=== PATIENT | female | born 1980 | race Caucasian/White ===

== ENCOUNTER 2018-10-20 11:36 | Emergency (ER) | payer OTHER ==
[2018-10-20 12:58] LABS: Absolute Lymphocytes (CBC) 1.7 K/uL (0.7-4.9); Absolute Monocytes 0.4 K/uL (0.1-1.3); Absolute Neutrophil 3.3 K/uL (1.8-8.0); Basophils % 1.5 % (0-1.3); Hematocrit 35.6 % (36.0-45.0); Lymphocytes % 30.1 % (15.3-44.8); MPV 8.6 fL (7.6-11.3); Monocytes % 6.9 % (3.3-12.3); RBC Red Blood Cell Count 4.71 M/uL (3.86-4.86)
[2018-10-20 13:09] LABS: BUN Blood Urea Nitrogen 9 mg/dL (7-18); Bicarbonate 28 mmol/L (21-32); Glucose Level 99 mg/dL (74-106); Potassium 3.7 mmol/L (3.5-5.1); Sodium Level 142 mmol/L (136-145)
--- NOTE | 2018-10-20 13:48 | RAD REPORT ---
EXAM DESCRIPTION: MRI - Brain Wo Cont - 10/20/2018 1:37 pm CLINICAL HISTORY: DIZZINESS Headache, syncope, drowsiness COMPARISON: No comparisons TECHNIQUE: Multi-sequence, multiplanar MR imaging of the brain was performed without contrast. FINDINGS: No intracranial hemorrhage, hydrocephalus or extra-axial fluid collections. No edema or sh ift of midline structures. No findings to suspect brain mass. DWI is negative for acute CVA. Midline structures are normally formed. Mastoid air cells and paranasal sinuses are clear. IMPRESSION: No acute or concerning intracranial abnormalities.
--- NOTE | 2018-10-20 13:58 | EDPHYS ---
Physician Documentation [facility] Name: Miranda Howell Age: 38 yrs Sex: Female : 1980 Arrival Date: 10/20/2018 Time: 11:41 Bed 15 Private MD: ED Physician Héctor Stratton HPI: 10/20 13:54 This 38 yrs old Female presents to ER via Wheelchair with complaints of gs Dizziness, Nausea. 13:54 The patient presents with dizziness, sense of spinning, vertigo. Onset: The gs symptoms/episode began/occurred acutely, this morning, today. Context: occurred at home. Modifying factors: The symptoms are alleviated by nothing, the symptoms are aggravated by nothing. Associated signs and symptoms: Pertinent positives: nausea. Severity of symptoms: At their worst the symptoms were severe in the emergency department the symptoms have improved mildly. The patient has not experienced similar symptoms in the past. The patient has not recently seen a physician. 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 - Social history:: Smoking status: Patient/guardian denies using tobacco. - Ebola Screening: : No symptoms or risks identified at this time. ROS: 13:54 All other systems are negative. gs Exam: 13:54 Head/Face: Normocephalic, atraumatic. Eyes: Pupils equal round and reactive to light, gs extra-ocular motions intact. Lids and lashes normal. Conjunctiva and sclera are non-icteric and not injected. Cornea within normal limits. Periorbital areas with no swelling, redness, or edema. ENT: Nares patent. No nasal discharge, no septal abnormalities noted. Tympanic membranes are normal and external auditory canals are clear. Oropharynx with no redness, swelling, or masses, exudates, or evidence of obstruction, uvula midline. Mucous membranes moist. Neck: Trachea midline, no thyromegaly or masses palpated, and no cervical lymphadenopathy. Supple, full range of motion without nuchal rigidity, or vertebral point tenderness. No Meningismus. Chest/axilla: Normal chest wall appearance and motion. Nontender with no deformity. No lesions are appreciated. Cardiovascular: Regular rate and rhythm with a normal S1 and S2. No gallops, murmurs, or rubs. Normal PMI, no JVD. No pulse deficits. Respiratory: Lungs have equal breath sounds bilaterally, clear to auscultation and percussion. No rales, rhonchi or wheezes noted. No increased work of breathing, no retractions or nasal flaring. Abdomen/GI: Soft, non-tender, with normal bowel sounds. No distension or tympany. No guarding or rebound. No evidence of tenderness throughout. Back: No spinal tenderness. No costovertebral tenderness. Full range of motion. Skin: Warm, dry with normal turgor. Normal color with no rashes, no lesions, and no evidence of cellulitis. MS/ Extremity: Pulses equal, no cyanosis. Neurovascular intact. Full, normal range of motion. Neuro: Awake and alert, GCS 15, oriented to person, place, time, and situation. Cranial nerves II-XII grossly intact. Motor strength 5/5 in all extremities. Sensory grossly intact. Cerebellar exam normal. Normal gait. 13:54 Constitutional: The patient appears alert, awake. 13:54 ECG was reviewed by the Attending Physician. Vital Signs: 11:44 BP 149 / 91; Pulse 92; Resp 18; Temp 97.8(O); Pulse Ox 100% on R/A; Pain 4/10; hb 12:48 BP 144 / 97; Pulse 88; Resp 16; Temp 98.0; Pulse Ox 99% on R/A; Pain 0/10; ls4 MDM: 12:17 Patient medically screened. 13:54 Differential diagnosis: CVA, idiopathic dizziness, vertigo. Data reviewed: vital signs, nurses notes. Response to treatment: the patient's symptoms have markedly improved after treatment, and as a result, I will discharge patient. 13:58 ED course: concern for dizziness imbalance tigling fingertips will get mri pt improved gs after meds, . 02 12:19 Order name: Basic Metabolic Panel; Complete Time: 13:54 02 12:19 Order name: CBC with Diff; Complete Time: 13:54 02 12:19 Order name: MRI - Brain Wo Cont; Complete Time: 13:54 10/20 14:05 Order name: Urine Dipstick--Ancillary (enter results); Complete Time: 14:15 10/20 14:05 Order name: Urine --Ancillary (enter results); Complete Time: 14:15 10/20 12:19 Order name: EKG; Complete Time: 12:19 10/20 12:19 Order name: Cardiac monitoring; Complete Time: 12:23 10/20 12:19 Order name: EKG - Nurse/Tech; Complete Time: 12:45 10/20 12:19 Order name: IV Saline Lock; Complete Time: 12:24 10/20 12:19 Order name: Labs collected and sent; Complete Time: 14:16 10/20 12:19 Order name: O2 Per Protocol; Complete Time: 12:24 10/20 12:19 Order name: O2 Sat Monitoring; Complete Time: 12:24 EC:54 Rate is 75 beats/min. Rhythm is regular. ME interval is normal. QRS interval is normal. gs T waves are Normal. Clinical impression: Normal ECG. Interpreted by me. Administered Medications: 13:26 Drug: Benadryl 25 mg Route: IVP; Site: left antecubital; ls4 14:01 Follow up: Response: No adverse reaction; Marked relief of symptoms ls4 Disposition: 10/20/18 13:57 Discharged to Home. Impression: Benign paroxysmal vertigo. - Condition is Stable. - Discharge Instructions: Benign Positional Vertigo. - Prescriptions for Benadryl 25 mg Oral Capsule - take 1 capsule by ORAL route every 8 hours As needed; 30 tablet. Valium 5 mg Oral Tablet - take 1 tablet by ORAL route every 12 hours As needed; 10 tablet. - Medication Reconciliation Form, Thank You Letter, Antibiotic Education, Prescription Opioid Use form. - Follow up: Mendel Fine MD; When: 2 - 3 days; Reason: Re-evaluation by your physician. Signatures: Dispatcher [employer] EDKylie De Dios RN RN Héctor Guevara MD MD gs Stewart, Lisa, RN RN ls4 Corrections: (The following items were deleted from the chart) 14:30 13:57 10/20/2018 13:57 Discharged to Home. Impression: Benign paroxysmal vertigo. ls4 Condition is Stable. Forms are Medication Reconciliation Form, Thank You Letter, Antibiotic Education, Prescription Opioid Use. Follow up: Mendel Fine; When: 2 - 3 days; Reason: Re-evaluation by your physician. gs
--- NOTE | 2018-10-20 13:58 | ER ---
Nurse's Notes [facility] Name: Miranda Howell Age: 38 yrs Sex: Female : 1980 Arrival Date: 10/20/2018 Time: 11:41 Bed 15 Private MD: Diagnosis: Benign paroxysmal vertigo Presentation: 10/20 11:43 Presenting complaint: Severe dizziness and nausea since this morning. Transition of hb care: patient was not received from another setting of care. Onset of symptoms was October 20, 2018. Risk Assessment: Do you want to hurt yourself or someone else? Patient reports no desire to harm self or others. Care prior to arrival: None. 11:43 Method Of Arrival: Wheelchair hb 11:43 Acuity: KENNY 3 hb 12:46 Initial Sepsis Screen: Does the patient meet any 2 criteria? No. Patient's initial ls4 sepsis screen is negative. Does the patient have a suspected source of infection? No. Patient's initial sepsis screen is negative. Triage Assessment: 11:58 General: Appears obese, unkempt, Behavior is calm, cooperative. Pain: Denies pain. ls4 Neuro: Level of Consciousness is awake, alert, obeys commands, Oriented to person, place, time, situation, Foaming Machine Operator are equal bilaterally Moves all extremities. Gait is unsteady, Speech is slurred. Neuro: Reports. Cardiovascular: No deficits noted. Respiratory: No deficits noted. GI: Reports nausea. 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 - Social history:: Smoking status: Patient/guardian denies using tobacco. - Ebola Screening: : No symptoms or risks identified at this time. Screenin:59 Abuse screen: Denies threats or abuse. Denies injuries from another. Nutritional ls4 screening: No deficits noted. Tuberculosis screening: No symptoms or risk factors identified. Fall Risk None identified. Assessment: 11:45 GI: Reports nausea. ls4 11:45 General: Appears in no apparent distress. Neuro: Reports dizziness, since this morning. ls4 GI: Abdomen is obese, Bowel sounds present X 4 quads. Abd is soft and non tender. Vital Signs: 11:44 BP 149 / 91; Pulse 92; Resp 18; Temp 97.8(O); Pulse Ox 100% on R/A; Pain 4/10; hb 12:48 BP 144 / 97; Pulse 88; Resp 16; Temp 98.0; Pulse Ox 99% on R/A; Pain 0/10; ls4 ED Course: 11:41 Patient arrived in ED. mr 11:44 Triage completed. hb 11:44 Arm band placed on. hb 11:49 Ericka Olivarez, RN is Primary Nurse. ls4 11:55 Héctor Stratton MD is Attending Physician. gs 11:59 Patient has correct armband on for positive identification. Placed in gown. Bed in low ls4 position. Call light in reach. Side rails up X 1. teletypesetter monitor on. Pulse ox on. NIBP on. Warm blanket given. 12:37 EKG done, by cath lab radiology technician. reviewed by Héctor Stratton MD. at1 12:45 No provider procedures requiring assistance completed. Initial lab(s) drawn, by pr, ls4 sent to lab. Inserted saline lock: 20 gauge in left antecubital area, using aseptic technique. 13:18 Patient moved to MRI via wheelchair. em2 13:33 MRI - Brain Wo Cont In Process Unspecified. EDMS 13:39 PT AT MRI. ls4 13:45 MRI completed. Patient tolerated well. Patient moved back from [facility]. em2 13:56 Mendel Fine MD is Referral Physician. gs 14:28 IV discontinued, intact, bleeding controlled, No redness/swelling at site. Pressure ls4 dressing applied. Administered Medications: 13:26 Drug: Benadryl 25 mg Route: IVP; Site: left antecubital; ls4 14:01 Follow up: Response: No adverse reaction; Marked relief of symptoms ls4 Outcome: 13:57 Discharge ordered by . gs 14:29 Discharged to home via ambulance, with family. ls4 14:29 Condition: stable 14:29 Discharge instructions given to patient, family, Instructed on discharge instructions, follow up and referral plans. Demonstrated understanding of instructions, follow-up care, medications. 14:30 Patient left the ED. ls4 Signatures: Dispatcher [employer] VIRALAZ Ashwini Elkins mr HernándezTelly em2 Rachel Hdez, crop specialist EKG Tat1 Kylie Hdz, RN RN hb Héctor Stratton MD MD gs Ericka Olivarez RN RN ls4
[2018-10-20 14:11] LABS: Urine Blood NEGATIVE (NEG); Urine Glucose NEGATIVE (NEG); Urine Protein NEGATIVE (NEG); Urine Specific Gravity 1.025 (1.005-1.030)
--- NOTE | 2018-10-20 16:57 | EKG ---
Test Date: 2018-10-20 Test Time: 12:34:21 Flux Mixer: ARCENIO MEASUREMENT RESULTS: Intervals: Rate: 75 AK: 160 QRSD: 84 QT: 428 QTc: 477 [place]: P: 68 AK: 160 QRS: 78 T: 39 INTERPRETIVE STATEMENTS: Normal sinus rhythm Normal ECG No previous ECG available for comparison Electronically Signed On 10-20-18 16:56:28 DATABASE ADMINISTRATION PROJECT MANAGER by Graham Young
== END 2018-10-20 14:30 | disposition home or self-care (01) ==
LOC: ER 11:36
DX: H81.10 Benign paroxysmal vertigo, unspecified ear (principal); E03.9 Hypothyroidism, unspecified
CPT/HCPCS: 36415; 70551; 80048; 81003; 81025; 85025; 93005; 96374; 99285

== ENCOUNTER 2020-02-28 09:40 | Emergency (ER) | payer BC, OTHER ==
--- OUTSIDE RECORDS SUMMARY | 2020-02-28 11:10 | XMS REPORT | Continuity of Care Document ---
:1980 Author Organization [facility] t Address [address] [place] [address] Care Team Providers Name Role Phone Unavailable Unavailable Unavailable Problems Condition Condition Condition Status Onset Resolution Last Treating Co mments Source Name Details Category Date Date Treatment Clinician Date HTN, goal HTN, goal Diagnosis Active [facility] below below [facility] - 140/90 140/90 [facility] Adult BMI Adult BMI Diagnosis Active [facility] 45.0-49.9 45.0-49.9 Luke s - kg/sq m kg/sq m [facility] Secondary Secondary Diagnosis Active [facility] hyperparat hyperparat [facility] - hyroidism hyroidism Jayjay salvatore l [facility] Clinics Iron Iron Diagnosis Active [facility] deficiency deficiency Rosa ke - anemia due anemia due Me moria to chronic to chronic l blood loss blood loss [facility] Clinics Vitamin D Vitamin D Diagnosis Active [facility] deficiency deficiency Rosa ke - disease disease [facility] Hypocalcem Hypocalcem Diagnosis Active [facility] ia ia [facility] - [facility]oria l [facility] Mixed Mixed Diagnosis Active [facility] hyperlipid hyperlipid [facility] - [facility] Hypothyroi Hypothyroi Diagnosis Active [facility] dism, dism, [facility] - unspecifie unspecifie Me moria d type d type l [facility] Clinics Noncomplia Noncomplia Diagnosis Active [facility] nce nce [facility] - w/medicati w/medicati Me moria on on l treatment treatment Outp ati due to due to ent intermit intermit Clinic s use of use of medication medication Well adult Well adult Diagnosis Active [facility] on routine on routine [facility] check check l [facility] Clinics Refused Refused Diagnosis Active [facility] influenza influenza Luke s - vaccine vaccine Memoria l [facility] Allergies, Adverse Reactions, Alerts This patient has no known allergies or adverse reactions. Medications Ordered Filled Start Stop Current Ordering Indication Dosage Frequency Signature Comments Components Source Medication Medication Date Date Medication? Clinician (SIG) Name Name Vitamin D3 Vitamin D3 2018-09 Parker [address] [facility] 0-21 -18 Stewart [facility] - 00:00: 00:00 Memoria 00 :00 [facility] Ferrous Ferrous Yes Parker [address] [facility] Sulfate Sulfate Stewart [facility] Lisinopril Lisinopril Yes Parker [address] [facility] Levothyroxi Levothyroxi Yes Parker [address] [facility] ne Sodium ne Sodium Stewart on an Kaleb es - empty [facility] stomach in the [facility] Calcium Calcium Parker [address] Carbonate Carbonate 09-26 Stewart Kaleb es - 00:00 Memoria :00 [facility] Clinics Procedures This patient has no known procedures. Encounters Start End Encounter Admission Attending Care Care Encounter Source Date/Time Date/Time Type Type Clinicians Facility Department ID 2020-01-03 2020-01-03 Outpatient [facility] [id number] [address] 14:45:00 14:45:00 [facility] 2019-11-04 2019-11-04 Outpatient [facility] [id number] 08:15:00 08:15:00 [facility] 2019-08-30 2019-08-30 Outpatient [facility] [place] [id number] [address] 15:00:00 15:00:[address] [facility] 2019-06-28 2019-06-28 Outpatient [facility] [id number] 15:00:00 15:00:00 [facility] Clinics Results This patient has no known results.
--- OUTSIDE RECORDS SUMMARY | 2020-02-28 11:10 | XMS REPORT ---
:1980 Author Organization [employer] Care Team Providers Name Role Phone Terry Parker Provider Role Unavailable Allergies, Adverse Reactions, Alerts Substance Reaction Event Type N.K.D.A. Info Not Available Non Drug Allergy Problems Problem Type Condition Code Onset Dates Condition Statu s Assessment Well adult on routine health check Z00.00 Active Problem Adult BMI 45.0-49.9 kg/sq m Z68.42 Active Problem Secondary hyperparathyroidism N25.81 Active Problem Iron deficiency anemia due to D50.0 Active chronic blood loss Problem Vitamin D deficiency disease E55.9 Active Problem Hypocalcemia E83.51 Active Problem Mixed hyperlipidemia E78.2 Active Problem Hypothyroidism, unspecified type E03.9 Active Problem HTN, goal below 140/90 I10 Activ e Assessment Iron deficiency anemia due to D50.0 Active chronic blood loss Assessment Hypocalcemia E83.51 Active Assessment Noncompliance w/medication treatment Z91.14 Active due to intermit use of medication Assessment Mixed hyperlipidemia E78.2 Active Assessment Hypothyroidism, unspecified type E03.9 Active Assessment Secondary hyperparathyroidism N25.81 Active Assessment Vitamin D deficiency disease E55.9 Active Assessment Adult BMI 45.0-49.9 kg/sq m Z68.42 Active Assessment Refused influenza vaccine Z28.21 Ac tive Assessment HTN, goal below 140/90 I10 Activ e Medications Medication Code Code Instructions Start End Status Dosage System Date Date Lisinopril [facility] 59837000663 20 MG Orally Active 1 ta blet Once a day Calcium Carbonate [facility] 89251404853 500 MG Orally Acti ve 1 tablet BID Levothyroxine ND 87788060624 125 MCG Orally Active 1 tablet Sodium Once a day on an empty stomach in the morning Vitamin D3 [facility] 71581019329 04284 UNIT Active 1 caps ule Orally Once a week x 12 weeks Ferrous Sulfate [facility] 15697076440 325 (65 Fe) MG Activ e 1 tablet Orally Once a day Results No Known Results Summary Purpose [employer] Submission
--- NOTE | 2020-02-28 11:37 | RAD REPORT ---
EXAM DESCRIPTION: RAD - Shoulder Right 2 View - 02/28/2020 11:28 am CLINICAL HISTORY: Right shoulder pain FINDINGS: No fracture or dislocation is seen.
--- NOTE | 2020-02-28 11:48 | EDPHYS ---
Physician Documentation [facility] Name: Miranda Howell Age: 39 yrs Sex: Female : 1980 Arrival Date: 02/28/2020 Time: 09:42 Bed 16 Private MD: ED Physician Dot Crocker HPI: 02/27 10:24 This 39 yrs old Female presents to ER via Ambulatory with complaints of Fall cp Injury, Shoulder Pain, Numbness. 10:24 The patient or guardian complains of an injury, pain, that is acute. right shoulder. cp 10:25 Context: The problem was sustained at work, resulted from a fall, with arms extended, cp The patient reports no decreased range of motion. The patient reports no obvious deformity. 10:25 Onset: The symptoms/episode began/occurred this morning. Associated signs and symptoms: cp Pertinent positives: Numbness in right hand tingling, Pertinent negatives: chest pain, Weakness in right hand and right arm. Treatment prior to arrival includes: no previous treatment. 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 - Social history:: Smoking status: Patient denies any tobacco usage or history of. ROS: 10:30 MS/extremity: Positive for pain, paresthesias, tenderness, of the right shoulder, cp Negative for decreased range of motion, deformity. 10:30 Eyes: Negative for injury, pain, redness, and discharge. cp 10:30 Constitutional: Negative for body aches, chills, fever. 10:30 ENT: Negative for ear pain, sore throat, difficulty swallowing, difficulty handling secretions. 10:30 Neck: Negative for pain with movement, pain at rest, stiffness, bony tenderness. 10:30 Cardiovascular: Negative for chest pain, palpitations. 10:30 Respiratory: Negative for cough, shortness of breath. 10:30 Abdomen/GI: Negative for abdominal pain, nausea, vomiting, and diarrhea. 10:30 Back: Negative for pain at rest, pain with movement. 10:30 Neuro: Negative for altered mental status, headache, weakness. Exam: 10:35 Constitutional: The patient appears in no acute distress, alert, awake, cp non-diaphoretic, non-toxic, well developed, well nourished, obese. 10:35 Head/Face: Normocephalic, atraumatic. cp 10:35 Eyes: Periorbital structures: appear normal, Conjunctiva: normal, no exudate, no cp injection, Sclera: no appreciated abnormality, Lids and lashes: appear normal, bilaterally. 10:35 ENT: External ear(s): are unremarkable, Nose: is normal, Mouth: is normal, Posterior cp pharynx: is normal, airway is patent. 10:35 Neck: C-spine: vertebral tenderness, is not appreciated, crepitus, is not appreciated, ROM/movement: is normal, is supple, without pain, no range of motions limitations, no nuchal rigidity. 10:35 Chest/axilla: Inspection: normal, Palpation: is normal, no crepitus, no tenderness. 10:35 Cardiovascular: Rate: normal, Rhythm: regular. 10:35 Respiratory: the patient does not display signs of respiratory distress, Respirations: normal, no use of accessory muscles, no retractions, Breath sounds: are clear throughout. 10:35 Abdomen/GI: Exam negative for discomfort, distension, guarding, Inspection: abdomen appears normal. 10:35 Back: pain, that is moderate, of the right scapular area. 10:35 Musculoskeletal/extremity: ROM: limited passive range of motion due to pain, in the right shoulder, Pulses: noted to be 2+ in the right radial artery and left radial artery, the right hand decreased sensation, Joints: the right shoulder displays painful range of motion, tenderness. Vital Signs: 09:55 BP 142 / 94; Pulse 94; Resp 15 S; Temp 97.2(TE); Pulse Ox 99% on R/A; Weight 140.61 kg ca1 (M); Height 5 ft. 10 in. (177.80 cm); 12:09 BP 125 / 89; Pulse 79; Resp 16; Pulse Ox 100% ; jl7 09:55 Body Mass Index 44.48 (140.61 kg, 177.80 cm) ca1 MDM: 10:09 Patient medically screened. cp 11:00 Differential diagnosis: Anterior dislocation with fracture, Anterior dislocation cp without fracture, Posterior dislocation with fracture, Posterior dislocation without fracture, tendonitis, rotator cuff injury. 11:46 Data reviewed: vital signs, nurses notes, radiologic studies, plain films. cp 11:46 Counseling: I had a detailed discussion with the patient and/or guardian regarding: the cp historical points, exam findings, and any diagnostic results supporting the discharge/admit diagnosis, radiology results, the need for outpatient follow up, a orthopedic surgeon, to return to the emergency department if symptoms worsen or persist or if there are any questions or concerns that arise at home. 11:52 ED course: Review of [place] prescription monitoring website shows no active cp prescriptions for narcotics. 02/27 10:19 Order name: XRAY Shoulder RIGHT 2 view cp 02/27 11:48 Order name: Sling; Complete Time: 12:12 cp Administered Medications: No medications were administered Disposition: 16:16 Co-signature as Attending Physician, Dot Crocker MD. ma2 Disposition: 02/28/20 11:47 Discharged to Home. Impression: Pain in right shoulder. - Condition is Stable. - Discharge Instructions: Shoulder Pain, Shoulder Range of Motion Exercises. - Prescriptions for Naprosyn 500 mg Oral Tablet - take 1 tablet by ORAL route 2 times per day take with food; 20 tablet. Tramadol 50 mg Oral Tablet - take 1 tablet by ORAL route every 8 hours as needed; 12 tablet. - Medication Reconciliation Form, Thank You Letter, Antibiotic Education, Prescription Opioid Use, Work release form form. - Follow up: Jayson Schwartz MD; When: 2 - 3 days; Reason: Recheck today's complaints. - Problem is new. - Symptoms have improved. Signatures: Dispatcher [employer] EDMS Carlos Interiano PA PA cp Leal, Jahala, RN RN jl7 Dot Crocker MD MD ma2 Tiffany Ziegler RN RN ca1 Corrections: (The following items were deleted from the chart) 12:12 11:47 02/28/2020 11:47 Discharged to Home. Impression: Pain in right shoulder. jl7 Condition is Stable. Forms are Medication Reconciliation Form, Thank You Letter, Antibiotic Education, Prescription Opioid Use. Follow up: Jayson Schwartz; When: 2 - 3 days; Reason: Recheck today's complaints. Problem is new. Symptoms have improved. cp
--- NOTE | 2020-02-28 11:48 | ER ---
Nurse's Notes [facility] Name: Miranda Howell Age: 39 yrs Sex: Female : 1980 Arrival Date: 02/28/2020 Time: 09:42 Bed 16 Private MD: Diagnosis: Pain in right shoulder Presentation: 02/27 09:55 Chief complaint: Patient states: Tripped and fell forward, fell landed on L arm at 0700 ca1 today. Reports pain on R shoulder, R shoulder blade, R arm down to the fingers. Coronavirus screen: Proceed with normal triage. Patient denies a cough. Patient denies shortness of breath or difficulty breathing. Patient denies measured and/or subjective temperature greater than 100.4F prior to today's visit. Patient denies travel on a cruise ship or to a country the [facility] currently lists as an affected area. Patient denies contact with known and/or suspected case of COVID-19. Ebola Screen: Patient negative for fever greater than or equal to 101.5 degrees Fahrenheit, and additional compatible Ebola Virus Disease symptoms Patient denies exposure to infectious person. Patient denies travel to an Ebola-affected area in the 21 days before illness onset. No symptoms or risks identified at this time. Initial Sepsis Screen: Does the patient meet any 2 criteria? No. Patient's initial sepsis screen is negative. Does the patient have a suspected source of infection? No. Patient's initial sepsis screen is negative. Risk Assessment: Do you want to hurt yourself or someone else? Patient reports no desire to harm self or others. Onset of symptoms was February 28, 2020. 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 - Social history:: Smoking status: Patient denies any tobacco usage or history of. Screenin:30 Abuse screen: Denies threats or abuse. Denies injuries from another. Nutritional jl7 screening: No deficits noted. Tuberculosis screening: No symptoms or risk factors identified. Fall Risk Fall in past 12 months (25 points). Total Ball Fall Scale indicates Low Risk Score (25-44 pts). Fall prevention measures have been instituted. Side Rails Up X 2 Placed close to Nursing Station Frequent Obs/Assesments occuring As available Patient and Family Educated on Fall Prevention Program and strategies. Assessment: 10:30 General: Appears in no apparent distress. uncomfortable, Behavior is calm, cooperative, jl7 appropriate for age. Pain: Complains of pain in anterior aspect of right shoulder Pain currently is 0 out of 10 on a pain scale. at worst was 4 out of 10 on a pain scale. Quality of pain is described as burning, Is episodic. Neuro: Level of Consciousness is awake, alert, obeys commands, Oriented to person, place, time, situation. Cardiovascular: Patient's skin is warm and dry. Respiratory: Airway is patent Respiratory effort is even, unlabored, Respiratory pattern is regular, symmetrical. Derm: Skin is pink, warm \T\ dry. Musculoskeletal: Range of motion: limited in right shoulder. 11:44 Reassessment: ERP at bedside discussing results and POC. jl7 11:52 Reassessment: Waiting for sling to be delivered from materials, pt updated. jl7 Vital Signs: 09:55 BP 142 / 94; Pulse 94; Resp 15 S; Temp 97.2(TE); Pulse Ox 99% on R/A; Weight 140.61 kg ca1 (M); Height 5 ft. 10 in. (177.80 cm); 12:09 BP 125 / 89; Pulse 79; Resp 16; Pulse Ox 100% ; jl7 09:55 Body Mass Index 44.48 (140.61 kg, 177.80 cm) ca1 ED Course: 09:42 Patient arrived in ED. ag5 09:57 Triage completed. ca1 09:58 Arm band placed on left wrist. ca1 09:59 Carlos Interiano PA is PHCP. cp 09:59 Dot Crocker MD is Attending Physician. cp 09:59 Willow Duvall RN is Primary Nurse. jl7 10:30 Patient has correct armband on for positive identification. Bed in low position. Call jl7 light in reach. Side rails up X 1. 11:28 XRAY Shoulder RIGHT 2 view In Process Unspecified. EDMS 11:47 Jayson Schwartz MD is Referral Physician. cp 11:53 No provider procedures requiring assistance completed. Patient did not have IV access jl7 during this emergency room visit. Administered Medications: No medications were administered Outcome: 11:47 Discharge ordered by . cp 12:08 Discharged to home ambulatory. jl7 12:08 Condition: stable 12:08 Discharge instructions given to patient, Instructed on discharge instructions, follow up and referral plans. medication usage, Demonstrated understanding of instructions, follow-up care, medications, Prescriptions given X 2. 12:12 Patient left the ED. jl7 Signatures: Dispatcher [employer] EDWI Carlos Interiano PA PA cp Leal, Jahala RN RN jl7 Tiffany Ziegler RN RN ca1 Wendi Green 5
[2020-02-28 12:17] VITALS: TEMP 97.2
[2020-02-28 12:19] VITALS: BP 125/89; O2SAT 100
== END 2020-02-28 12:12 | disposition home or self-care (01) ==
LOC: ER 09:40
DX: M25.511 Pain in right shoulder (principal); W19.XXXA Unspecified fall, initial encounter; Y93.01 Activity, walking, marching and hiking; Y92.89 Other specified places as the place of occurrence of the external cause; Y99.8 Other external cause status; E03.9 Hypothyroidism, unspecified; Z88.5 Allergy status to narcotic agent; Z88.8 Allergy status to other drugs, medicaments and biological substances
CPT/HCPCS: 99283

== ENCOUNTER → 2023-08-28 | Emergency (ER) | payer OTHER ==
[~2023-08-28] MED LIST: MORPHINE 2 MG/ML SYR ONE; methocarbamoL 750 MG TAB ONE
[2023-08-28 17:08] LABS: Absolute Lymphocytes (CBC) 2.6 K/uL (0.7-4.9); Hematocrit 43.2 % (36.0-45.0); Lymphocytes % 35.8 % (15.3-44.8); MPV 8.9 fL (7.6-11.3); Platelets 305 thou/uL (152-406)
[2023-08-28 17:25] LABS: Troponin High Sensitivity 4.4 pg/mL (<58.9)
--- NOTE | 2023-08-28 17:59 | ER ---
Nurse's Notes [facility] Name: Miranda Howell Age: 42 yrs Sex: Female : 1980 Arrival Date: 08/28/2023 Time: 16:04 Bed 5 Private MD: Diagnosis: Back Pain;Chest pain, unspecified Presentation: 08/28 16:09 Chief complaint: Patient states: Mid back pain started Friday. Shooting across R side ll1 of back. Pain radiated into chest today so she came in. + SOB. Coronavirus screen: Client denies travel out of the [place] in the last 14 days. At this time, the client does not indicate any symptoms associated with coronavirus-19. Ebola Screen: Patient denies travel to an Ebola-affected area in the 21 days before illness onset. Initial Sepsis Screen: Does the patient meet any 2 criteria? No. Patient's initial sepsis screen is negative. Does the patient have a suspected source of infection? No. Patient's initial sepsis screen is negative. Risk Assessment: Do you want to hurt yourself or someone else? Patient reports no desire to harm self or others. Onset of symptoms was August 25, 2023. 16:09 Method Of Arrival: Ambulatory ll1 16:09 Acuity: KENNY 3 ll1 Triage Assessment: 16:12 General: Appears uncomfortable, Behavior is calm, cooperative, appropriate for age. ll1 Pain: Complains of pain in mid back. 16:13 Cardiovascular: Reports chest pain, shortness of breath. Musculoskeletal: Reports pain ll1 in back. Historical: - Allergies: 16:07 Phenergan; iw 16:07 Stadol; iw 16:12 Sulfa (Sulfonamide Antibiotics); ll1 16:12 Latex, Natural Rubber; ll1 - PMHx: 16:07 Hypothyroidism; iw 16:11 neuropathy; Hypertensive disorder; ll1 16:12 elevated A1C; ll1 - PSHx: 16:12 ankle SX; ll1 - Immunization history:: Adult Immunizations up to date. - Social history:: Smoking status: Patient denies any tobacco usage or history of. Screenin:59 [facility] ED Fall Risk Assessment (Adult) History of falling in the last 3 months, kc6 including since admission No falls in past 3 months (0 pts) Confusion or Disorientation No (0 pts) Intoxicated or Sedated No (0 pts) Impaired Gait No (0 pts) Mobility Assist Device Used No (0 pt) Altered Elimination No (0 pt) Score/Fall Risk Level 0 - 2 = Low Risk. Abuse screen: Denies threats or abuse. Denies injuries from another. Nutritional screening: No deficits noted. Tuberculosis screening: No symptoms or risk factors identified. Assessment: 16:59 General: Appears in no apparent distress. comfortable, obese, well groomed, well kc6 developed. Pain: Complains of pain in back, chest and right arm. Neuro: Level of Consciousness is awake, alert, obeys commands, Oriented to person, place, time, situation, Appropriate for age. Cardiovascular: Capillary refill < 3 seconds. Respiratory: Airway is patent Trachea midline Respiratory effort is even, unlabored, Respiratory pattern is regular, symmetrical. GI: No signs and/or symptoms were reported involving the gastrointestinal system. : No signs and/or symptoms were reported regarding the genitourinary system. EENT: No signs and/or symptoms were reported regarding the EENT system. Derm: No signs and/or symptoms reported regarding the dermatologic system. Skin is intact, is healthy with good turgor, Skin is pink, warm \T\ dry. Musculoskeletal: No signs and/or symptoms reported regarding the musculoskeletal system. Circulation, motion, and sensation intact. Capillary refill < 3 seconds, Range of motion: intact in all extremities. 17:59 Reassessment: Patient appears in no apparent distress at this time. No changes from kc6 previously documented assessment. Patient and/or family updated on plan of care and expected duration. Pain level reassessed. Patient is alert, oriented x 3, equal unlabored respirations, skin warm/dry/pink. Vital Signs: 16:09 BP 157 / 85; Pulse 100; Resp 18; Temp 97.9; Pulse Ox 100% ; ll1 17:17 BP 148 / 75; Pulse 97; Resp 18; Pulse Ox 98% on R/A; ph ED Course: 16:06 Patient arrived in ED. rg4 16:06 Stefano Becker MD is Attending Physician. ec2 16:07 Arm band placed on Patient placed in an exam room, on a stretcher. iw 16:11 Triage completed. ll1 16:40 Casandra Jackson RN is Primary Nurse. kc6 16:52 XRAY Chest (1 view) In Process Unspecified. EDMS 16:59 Patient has correct armband on for positive identification. Bed in low position. Call kc6 light in reach. Side rails up X 1. Adult w/ patient. Client placed on continuous cardiac and pulse oximetry monitoring. NIBP monitoring applied. 16:59 Inserted saline lock: 20 gauge in right antecubital area, using aseptic technique. kc6 Blood collected. Patient maintains SpO2 saturation greater than 95% on room air. 18:31 No provider procedures requiring assistance completed. IV discontinued, intact, kc6 bleeding controlled, No redness/swelling at site. Pressure dressing applied. Administered Medications: 16:59 Drug: morphine IVP or IV 2 mg IVP once over 4 mins Route: IVP; Infused Over: 4 mins; kc6 Site: right forearm; 18:06 Follow up: Response: No adverse reaction; Pain is decreased; RASS: Alert and Calm (0) kc6 18:06 Drug: Methocarbamol PO 750 mg PO once Route: PO; kc6 18:32 Follow up: Response: No adverse reaction; Pain is decreased; RASS: Alert and Calm (0) kc6 Medication: 18:31 VIS not applicable for this client. kc6 Outcome: 17:58 Discharge ordered by . ec2 18:31 Discharged to home ambulatory, with significant other, kc6 18:31 Condition: improved 18:31 Discharge instructions given to patient, Instructed on discharge instructions, follow up and referral plans. Demonstrated understanding of instructions, follow-up care, 18:31 Patient left the ED. kc6 Signatures: Dispatcher [employer] Vilma Carter RN RN iw Hall, Patricia, RN RN ph Garcia, Bailey rg4 Anahi Tuttle RN RN ll1 Casandra Jackson RN RN kc6 Stefano Becker MD MD ec2
--- NOTE | 2023-08-28 17:59 | EDPHYS ---
Physician Documentation [facility] Name: Miranda Howell Age: 42 yrs Sex: Female : 1980 Arrival Date: 08/28/2023 Time: 16:04 Bed 5 Private MD: ED Physician Stefano Becker HPI: 08/28 16:20 This 42 yrs old Female presents to ER via Ambulatory with complaints of Chest ec2 Pain, Back Pain, Shoulder Pain, Breathing Difficulty. 16:20 Patient arrives today due to concern for mid back pain going into the chest. Patient ec2 reports that she had noted pain several days ago that progressively has gotten worse. Patient reports no exertional component however does reports that the pain is worse with positional movement. Patient reports no trauma no injuries or falls. Patient reports no difficulty breathing. Reports no leg swelling. Does report that she had a recent left ankle surgery however has been ambulatory on this. Denies any significant leg swelling.. Historical: - Allergies: 16:07 Phenergan; iw 16:07 Stadol; iw 16:12 Sulfa (Sulfonamide Antibiotics); ll1 16:12 Latex, Natural Rubber; ll1 - PMHx: 16:07 Hypothyroidism; iw 16:11 neuropathy; Hypertensive disorder; ll1 16:12 elevated A1C; ll1 - PSHx: 16:12 ankle SX; ll1 - Immunization history:: Adult Immunizations up to date. - Social history:: Smoking status: Patient denies any tobacco usage or history of. ROS: 16:20 Constitutional: as per hpi ec2 Exam: 16:20 Constitutional: GEN: NAD Head: atraumatic Eyes: EOMI Ears: External ears are ec2 normal. CV: regular rate LUNGS: no respiratory distress ABD: non-distended SKIN: no evidence of rashes MSK: no evidence of trauma no C/T/L-spine TTP, bilateral subscapular TTP NEURO: moves all extremities equally, Vital Signs: 16:09 BP 157 / 85; Pulse 100; Resp 18; Temp 97.9; Pulse Ox 100% ; ll1 17:17 BP 148 / 75; Pulse 97; Resp 18; Pulse Ox 98% on R/A; ph MDM: 16:07 Patient medically screened. ec2 16:20 Data reviewed: vital signs. ED course: Patient arrives today due to concern for chest ec2 pain and back pain. Examination remarkable for well-appearing nontoxic individual was in no acute distress is otherwise well-appearing, patient with reproducible MSK TTP. Will obtain lab work, EKG, chest x-ray, treat the patient symptoms and reassess the patient. Currently considering processes such as musculoskeletal pain, ACS, PE, low suspicion for dissection. Will also obtain a D-dimer. 16:29 ED course: EKG independently reviewed and interpreted by me, shows normal sinus rhythm, ec2 rate of 92, no acute ST segment elevations, nonconcerning intervals.. 17:23 ED course: CBC reassuring, D-dimer within normal ranges.. ec2 17:33 ED course: Metabolic profile is reassuring, troponin within normal ranges. . ec2 17:33 ED course: Chest x-ray independently reviewed and interpreted by me, shows no acute ec2 intrathoracic process. On reassessment patient is well-appearing and in no acute distress. Will discharge home and have her follow-up with primary care doctor. Suspect MSK pain causing his symptoms. Will instruct on [id number] medications for pain.. 12 16:20 Order name: Basic Metabolic Panel; Complete Time: 17:33 ec2 08/28 16:20 Order name: CBC with Diff; Complete Time: 17:22 ec2 08/28 16:20 Order name: D-Dimer; Complete Time: 17:22 ec2 08/28 16:20 Order name: Troponin HS; Complete Time: 17:33 ec2 08/28 16:20 Order name: XRAY Chest (1 view) ec2 08/28 16:20 Order name: EKG; Complete Time: 16:21 ec2 08/28 16:20 Order name: Cardiac monitoring; Complete Time: 16:59 ec2 08/28 16:20 Order name: EKG - Nurse/Tech; Complete Time: 16:28 ec2 08/28 16:20 Order name: IV Saline Lock; Complete Time: 16:59 ec2 08/28 16:20 Order name: Labs collected and sent; Complete Time: 16:59 ec2 08/28 16:20 Order name: O2 Per Protocol; Complete Time: 16:59 ec2 08/28 16:20 Order name: O2 Sat Monitoring; Complete Time: 16:59 ec2 Administered Medications: 16:59 Drug: morphine IVP or IV 2 mg IVP once over 4 mins Route: IVP; Infused Over: 4 mins; kc6 Site: right forearm; 18:06 Follow up: Response: No adverse reaction; Pain is decreased; RASS: Alert and Calm (0) kc6 18:06 Drug: Methocarbamol PO 750 mg PO once Route: PO; kc6 18:32 Follow up: Response: No adverse reaction; Pain is decreased; RASS: Alert and Calm (0) kc6 Disposition Summary: 08/28/23 17:58 Discharge Ordered Notes: Location: Home ec2 Problem: new ec2 Symptoms: have improved ec2 Condition: Stable ec2 Diagnosis - Back Pain ec2 - Chest pain, unspecified ec2 Followup: ec2 - With: Private Physician - When: - Reason: Recheck today's complaints Discharge Instructions: - Discharge Summary Sheet ec2 - Acute Back Pain, Adult ec2 Forms: - Medication Reconciliation Form ec2 - Thank You Letter ec2 - Antibiotic Education ec2 - Prescription Opioid Use ec2 - Patient Portal Instructions ec2 - Leadership Thank You Letter ec2 Prescriptions: - methocarbamol 500 mg Oral tablet - take 2 tablets ORAL route 4 times per day; 30 tablet; Refills: 0, Product ec2 Selection Permitted Signatures: Dispatcher [employer] Vilma Carter RN RN iw Anahi Tuttle RN RN ll1 Casandra Jackson RN RN kc6 Stefano Becker MD MD ec2 Corrections: (The following items were deleted from the chart) 17:11 16:20 ED course: Patient arrives today due to concern for chest pain and back pain. ec2 Examination remarkable for well-appearing nontoxic individual was in no acute distress is otherwise well-appearing. Will obtain lab work, EKG, chest x-ray, treat the patient symptoms and reassess the patient. Currently considering processes such as musculoskeletal pain, ACS, PE, low suspicion for dissection. Will also obtain a D-dimer. ec2
--- NOTE | 2023-08-28 18:18 | RAD REPORT ---
[facility]AM DES[facility] 4:50 pm CLINICAL HISTORY: CHEST PAIN COMPARISON: No comparisons TECHNIQUE: Portable AP view of the chest. FINDINGS: The lungs are clear. No pneumothorax or effusion. The cardiomediastinal contours are unre markable. IMPRESSION: No acute cardiopulmonary process.
[2023-08-28 21:15] VITALS: TEMP 97.9
[2023-08-28 21:26] VITALS: BP 148/75; O2SAT 98
--- NOTE | 2023-08-29 15:07 | EKG ---
Test Date: 2023-08-28 Test Time: 16:26:24 Marketing Communication Manager: LML MEASUREMENT RESULTS: Intervals: Rate: 92 NM: 146 QRSD: 74 QT: 374 QTc: 462 [place]: P: 54 NM: 146 QRS: 26 T: 47 INTERPRETIVE STATEMENTS: Normal sinus rhythm Normal ECG Compared to ECG 10/20/2018 12:34:21 No significant changes Electronically Signed On 08-29-23 15:06:39 STAFF CLIMATE SCIENTIST by Anthony Tinoco
== END ==
LOC: ER 16:04
DX: R07.9 Chest pain, unspecified (principal); M54.9 Dorsalgia, unspecified; I10 Essential (primary) hypertension; Z88.2 Allergy status to sulfonamides; Z88.5 Allergy status to narcotic agent; Z88.8 Allergy status to other drugs, medicaments and biological substances; Z91.040 Latex allergy status
CPT/HCPCS: 93005; 85025; 80048; 36415; 85379; 84484; 71045; 96374; 99285; J2270

== ENCOUNTER 2024-11-15 14:19 | Emergency (ER) | payer OTHER ==
[2024-11-15 15:43] LABS: Absolute Basophils 0.1 K/uL (0-0.5); Absolute Eosinophils 0.1 K/uL (0-0.5); Absolute Lymphocytes (CBC) 2.1 K/uL (0.7-4.9); Absolute Monocytes 0.7 K/uL (0.1-1.3); Absolute Neutrophil 6.5 K/uL (1.8-8.0); Eosinophils % 1.4 % (0-4.4); Hematocrit 37.6 % (36.0-45.0); Hemoglobin 12.4 g/dL (12.0-15.0); Lymphocytes % 22.2 % (15.3-44.8); MCH 26.4 pg (27.0-35.0); MCHC 33.1 g/dL (32.0-36.0); MCV 79.9 fL (80-100); MPV 8.6 fL (7.6-11.3); Monocytes % 7.3 % (3.3-12.3); Neutrophils % 68.1 % (41.7-73.7); Nucleated Red Blood Cells % 0.1 % (0-0); Platelets 303 thou/uL (152-406); Red Cell Distribution Width 16.1 % (12.1-15.2)
[2024-11-15 15:54] LABS: Anion Gap 7.7 mEq/L (5.0-15.0); BUN Blood Urea Nitrogen 16 mg/dL (7-18); Bicarbonate 27 mEq/L (21-32); Glomerular Filtration Rate 85 ml/min (=/>90); Glucose Level 98 mg/dL (74-106); NT PRO-BNP 30 pg/mL (<125); Potassium 3.7 mEq/L (3.5-5.1); Sodium Level 142 mEq/L (136-145); Thyroid Stimulating Hormone 0.845 uIU/mL (0.358-3.740)
[2024-11-15 15:55] LABS: Troponin High Sensitivity < 3.0 pg/mL (<58.9)
--- NOTE | 2024-11-15 16:49 | RAD REPORT ---
EXAMINATION: CTA CHEST PE CLINICAL INDICATION: Chest pain TECHNIQUE: 100 cc 370 Isovue administered intravenously. This examination was performed according to an angiographic protocol with 3D post-processing. This involves 3D reconstructions, MIPs, volume rendered images and/or shaded surface rendering. One or more of the following dose reduction techniqu es were used: Automated exposure control, adjustment of the mA and/or kV according to patient size, and/or iterative reconstruction. Unless otherwise specified, incidental findings do not require dedic ated imaging follow-up. [id number]. COMPARISON: 2023 FINDINGS: A pulmonary embolus is not seen. An aortic aneurysm not noted. No pleural effusion. No pericardial effusion. Right lower lobe opacity described on the prior exam has resolved IMPRESSION: No evidence of a pulmonary embolism
--- NOTE | 2024-11-15 17:34 | RAD REPORT ---
Procedure: Chest Single View HISTORY: Chest pain COMPARISON: 2023 FINDINGS: The lungs appear clear of acute infiltrate. No significant pleural effusion noted. The heart is normal size. IMPRESSION: No acute abnormality is displayed.
[2024-11-15] MEDS ORDERED: KETOROLAC 30 MG/ML INJ ONE (17:54)
--- NOTE | 2024-11-15 17:55 | EDPHYS ---
Physician Documentation [facility] Name: Miranda Howell Age: 44 yrs Sex: Female : 1980 Arrival Date: 11/15/2024 Time: 14:19 Bed 8 Private MD: ED Physician Iván Reese HPI: 11/15 15:49 This 44 yrs old Female presents to ER via Ambulatory with complaints of Chest Pain. rn 15:49 The patient or guardian reports chest pain that is located primarily in the substernal rn area. Onset: 2 day(s) ago. The pain does not radiate. Associated signs and symptoms: Pertinent positives: shortness of breath, Pertinent negatives: abdominal pain, cough, lower extremity swelling, palpitations, syncope, vomiting. The chest pain is described as aching, sharp. Duration: The patient or guardian reports multiple episodes, that are intermittent. Modifying factors: The symptoms are alleviated by nothing. the symptoms are aggravated by deep breath. Severity of pain: At its worst the pain was mild in the emergency department the pain is unchanged. The patient has not experienced similar symptoms in the past. Patient reports substernal chest pain, sharp/stabbing/achy, intermittent for the last 2 days. No fever or chills. No previous MS or cardiac problems. No chronic lung issues. Non-smoker. No trauma. Denies abdominal pain. No vomiting or diarrhea. No leg swelling. No history of DVT or PE. Patient reports last time this happened she was told her thyroid levels were off and her medication needed to be titrated. States thyroid labs run 2 months ago and were within normal limits.. 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 - Infectious Disease History:: Denies. - Social history:: Smoking status: Patient denies any tobacco usage or history of. - Family history:: not pertinent. - Hospitalizations: : No recent hospitalization is reported. ROS: 15:49 Constitutional: Negative for fever, chills, and weight loss, Neck: Negative for injury, rn pain, and swelling, Cardiovascular: Positive for chest pain Respiratory: Positive for shortness of breath, negative for cough Abdomen/GI: Negative for abdominal pain, nausea, vomiting, diarrhea, and constipation, MS/Extremity: Negative for injury and deformity, Skin: Negative for injury, rash, and discoloration, Neuro: Negative for headache, weakness, numbness, tingling, and seizure, Exam: 15:49 Constitutional: This is a well developed, well nourished patient who is awake, alert, rn and in no acute distress. Head/Face: Normocephalic, atraumatic. Cardiovascular: Tachycardic, regular Respiratory: No increased work of breathing, no retractions or nasal flaring. Abdomen/GI: Soft, non-tender MS/ Extremity: Pulses equal, no cyanosis. Neuro: Awake and alert, GCS 15 17:54 ECG was reviewed by the Attending Physician. rn Vital Signs: 14:38 BP 130 / 93; Pulse 107; Resp 16; Temp 97.8; Pulse Ox 98% ; Weight 149.69 kg; Height 5 hb ft. 8 in. ; Pain 2/10; 17:45 BP 134 / 92; Pulse 88; Resp 17; Temp 98.5; Pulse Ox 100% on R/A; me1 18:16 BP 131 / 80; Pulse 76; Resp 18; Pulse Ox 98% ; ll1 14:38 Body Mass Index 50.18 (149.69 kg, 172.72 cm) hb 14:38 Pain Scale: Adult hb MDM: 14:41 Medical Screening Exam initiated rn 17:53 Differential diagnosis: acute myocardial infarction, acute pericarditis, anxiety, chest rn wall pain, costochondritis, esophagitis, gastroesophageal reflux disease (GERD), pleurisy, pneumonia, pneumothorax, pulmonary embolus. HEART Score: History: Slightly Suspicious (0), ECG: Normal (0), Age: < or = 45 years (0), Risk Factors: No Risk Factors Known (0), Troponin: < or = 1 x Normal Limit (0), Total Score = 0. Data reviewed: vital signs, nurses notes, lab test result(s), EKG, radiologic studies, plain films, and as a result, I will discharge patient. Care significantly affected by the following chronic conditions: Hypertension. Counseling: I had a detailed discussion with the patient and/or guardian regarding the historical points, exam findings, and any diagnostic results supporting the discharge/admit diagnosis, the presence of at least one elevated blood pressure reading (>120/80) during this emergency department visit, lab results, radiology results, the need for outpatient follow up, to return to the emergency department if symptoms worsen or persist or if there are any questions or concerns that arise at home. Special discussion: Based on the patient's history, exam, and Dx evaluation, there is no indication for emergent intervention or inpatient Tx. It is understood by the patient/guardian that if the Sx's persist or worsen they need to return immediately for re-evaluation. I discussed with the patient/guardian in detail that at this point there is no indication for admission to the hospital. It is understood, however, that if the symptoms persist or worsen the patient needs to return immediately for re-evaluation. ED course: I have personally reviewed all of the results, including but not limited to blood tests and imaging deemed necessary to safely discharge this patient at this time. All results given to and printed out for patient. I personally went over all the results with the patient and answered all questions. Patient will follow-up with PCP and or specialist as discussed. Return precautions given and understood.. 11/15 14:50 Order name: Basic Metabolic Panel; Complete Time: 16:12 11/15 14:50 Order name: CBC with Diff; Complete Time: 16:11/15 14:50 Order name: NT PRO-BNP; Complete Time: 16:12 11/15 14:50 Order name: Troponin HS; Complete Time: 16:12 11/15 14:51 Order name: TSH; Complete Time: 16:12 11/15 14:51 Order name: T4 Free; Complete Time: 16:12 11/15 14:50 Order name: XRAY Chest (1 view); Complete Time: 17:47 11/15 14:51 Order name: CT Chest For PE Angio; Complete Time: 17:47 11/15 14:50 Order name: Cardiac monitoring; Complete Time: 17:41 11/15 14:50 Order name: EKG - Nurse/Tech; Complete Time: 17:41 11/15 14:50 Order name: IV Saline Lock; Complete Time: 15:25 rn 11/15 14:50 Order name: Labs collected and sent; Complete Time: 15:25 rn 11/15 14:50 Order name: O2 Per Protocol; Complete Time: 17:41 rn 11/15 14:50 Order name: O2 Sat Monitoring; Complete Time: 17:41 rn EC:54 Rate is 98 beats/min. Rhythm is regular. QRS [place] is Normal. ND interval is normal. QRS rn interval is normal. QT interval is normal. No Q waves. T waves are Normal. No ST changes noted. Clinical impression: Normal ECG. Interpreted by me. Reviewed by me. Administered Medications: 17:55 Drug: Ketorolac IVP 30 mg IVP once Route: IVP; Site: left antecubital; me1 17:55 Follow up: Response: No adverse reaction me1 Disposition Summary: 11/15/24 17:54 Discharge Ordered Notes: Location: Home rn Problem: new rn Symptoms: have improved rn Condition: Stable rn Diagnosis - Chest pain, unspecified rn Followup: rn - With: Private Physician - When: As needed - Reason: Recheck today's complaints, Re-evaluation by your physician Discharge Instructions: - Discharge Summary Sheet rn - Nonspecific Chest Pain, Adult rn - Pain Without a Known Cause rn Forms: - Medication Reconciliation Form rn - 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 EDMS EDMS 14:51 14:50 CBC+H.LAB.BRZ ordered. EDMS EDMS 14:51 14:50 PROBNP+C.LAB.BRZ ordered. EDMS EDMS 14:51 14:50 Troponin High Sensitivity+C.LAB.BRZ ordered. EDMS EDMS 14:51 14:51 Chest Single View+RAD.RAD.BRZ ordered. EDMS EDMS
--- NOTE | 2024-11-15 17:55 | ER ---
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 Coronavirus screen: At this time, the client does not indicate any symptoms associated with coronavirus-19. Onset of symptoms was November 14, 2024. 14:39 Ebola Screen: No symptoms or risks identified at this time. Initial Sepsis Screen: Does hb the patient meet any 2 criteria? No. Patient's initial sepsis screen is negative. Does the patient have a suspected source of infection? No. Patient's initial sepsis screen is negative. Risk Assessment: Do you want to hurt yourself or someone else? Patient reports no desire to harm self or others. 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 - Infectious Disease History:: Denies. - Social history:: Smoking status: Patient denies any tobacco usage or history of. - Family history:: not pertinent. - Hospitalizations: : No recent hospitalization is reported. Screenin:46 [facility] ED Fall Risk Assessment (Adult) History of falling in the last 3 months, me1 including since admission No falls in past 3 months (0 pts) Confusion or Disorientation No (0 pts) Intoxicated or Sedated No (0 pts) Impaired Gait No (0 pts) Mobility Assist Device Used No (0 pt) Altered Elimination No (0 pt) Score/Fall Risk Level 0 - 2 = Low Risk Maintained a safe environment, Provided non-skid footwear, Hourly rounding (assess needs \T\ fall precautionary measures) done. Abuse screen: Denies threats or abuse. Nutritional screening: No deficits noted. Tuberculosis screening: No symptoms or risk factors identified. Assessment: 17:46 General: Appears in no apparent distress. 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 Pain: Complains of pain in chest Pain radiates to back Pain currently is 0 out of 10 on a pain scale. at worst was 8 out of 10 on a pain scale. Quality of pain is described as sharp, shooting, Pain began 2-3 days ago. Is intermittent. Neuro: Level of Consciousness is awake, alert, obeys commands, Oriented to person, place, time, situation, Appropriate for age. Cardiovascular: Patient's skin is warm and dry. Respiratory: Airway is patent Respiratory effort is even, unlabored, Respiratory pattern is regular, symmetrical. Respiratory: Reports shortness of breath today with pain just [place]. GI: No signs and/or symptoms were reported involving the gastrointestinal system. : No signs and/or symptoms were reported regarding the genitourinary system. EENT: No signs and/or symptoms were reported regarding the EENT system. Derm: Skin is intact, is healthy with good turgor, Skin is pink, warm \T\ dry. Musculoskeletal: No signs and/or symptoms reported regarding the musculoskeletal system. Vital Signs: 14:38 BP 130 / 93; Pulse 107; Resp 16; Temp 97.8; Pulse Ox 98% ; Weight 149.69 kg; Height 5 hb ft. 8 in. ; Pain 2/10; 17:45 BP 134 / 92; Pulse 88; Resp 17; Temp 98.5; Pulse Ox 100% on R/A; me1 18:16 BP 131 / 80; Pulse 76; Resp 18; Pulse Ox 98% ; ll1 14:38 Body Mass Index 50.18 (149.69 kg, 172.72 cm) hb 14:38 Pain Scale: Adult hb ED Course: 14:23 Patient arrived in ED. al6 14:39 Triage completed. hb 14:39 Arm band placed on. hb 14:41 Iván Reese MD is Attending Physician. rn 14:45 EKG done, by ED staff, reviewed by Iván Reese MD. hb 15:04 XRAY Chest (1 view) In Process Unspecified. EDMS 15:25 T4 Free Sent. bc6 15:25 TSH Sent. 6 15:25 Basic Metabolic Panel Sent. 6 15:25 CBC with Diff Sent. bc6 15:25 NT PRO-BNP Sent. bc6 15:25 Troponin HS Sent. 6 15:25 Initial lab(s) drawn, by nv, sent to lab. Inserted saline lock: 20 gauge in left [facility] antecubital area, using aseptic technique. Blood collected. Flushed with 10 mL NS. 16:38 CT Chest For PE Angio In Process Unspecified. EDMS 17:41 Norma Fong, RN is Primary Nurse. nv1 17:46 Patient has correct armband on for positive identification. Bed in low position. Call me1 light in reach. Side rails up X 1. Provided Education on: POC. Verbalized understanding.. Client placed on continuous cardiac and pulse oximetry monitoring. NIBP monitoring applied. satellite project site monitor on. Pulse ox on. NIBP on. 17:46 No provider procedures requiring assistance completed. Patient maintains SpO2 me1 saturation greater than 95% on room air. 18:17 IV discontinued, intact, bleeding controlled, No redness/swelling at site. Pressure 1 dressing applied. Administered Medications: 17:55 Drug: Ketorolac IVP 30 mg IVP once Route: IVP; Site: left antecubital; nv1 17:55 Follow up: Response: No adverse reaction me1 Medication: 17:46 VIS not applicable for this client. nv1 Outcome: 17:54 Discharge ordered by . rn 18:17 Discharged to home ambulatory, [facility] 18:17 Condition: stable 18:17 Discharge instructions given to patient, Instructed on discharge instructions, follow up and referral plans. Demonstrated understanding of instructions, follow-up care, 18:17 Patient left the ED. ll1 Signatures: Dispatcher [employer] EDOR Iván Reese MD MD rn Baxter, Heather, RN RN hb Lewis, Lynsay, RN RN 1 Aylin Niño [facility] Norma Fong, CHARO MANCILLA nv1 Jeanne Escalante al6 Corrections: (The following items were deleted from the chart) 14:47 14:38 BP 130 / 93; Pulse 100bpm; Resp 16bpm; Pulse Ox 98%; Temp 97.8F; 149.69 kg; hb Height 5 ft. 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 hb 17:56 17:45 BP 134 / 92; Pulse 88bpm; Resp 17bpm; Pulse Ox 100% RA; me1 me1
[2024-11-15 19:17] VITALS: TEMP 98.5
[2024-11-15 19:18] VITALS: BP 131/80; O2SAT 98
--- NOTE | 2024-11-16 10:59 | EKG ---
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
== END 2024-11-15 18:17 | disposition home or self-care (01) ==
LOC: ER 14:19
DX: R07.9 Chest pain, unspecified (principal); I10 Essential (primary) hypertension; E03.9 Hypothyroidism, unspecified
CPT/HCPCS: 93005; 85025; 80048; 36415; 84443; 84484; 84439; 83880; 71275; 71045; 96374; 99285; Q9967